=== PATIENT | male | born 1945 | race African-American/Black ===

== ENCOUNTER 2017-01-31 12:03 | Inpatient (IN) | payer OTHER ==
[~2017-01-31] VITALS: Ht 167.6 cm; Wt 63.7 kg
[~2017-01-31 12:03] MED LIST: APRESOLINE25 MG PO; ASPIR-LOW81 MG PO; ISOSORBIDE DINI10 MG PO; NICOTINE PATCH1 EACH TD
[2017-01-31 13:34] LABS: EOSINOPHIL (%) 1.1 % (0-5); EOSINOPHIL COUNT 0.1 K/uL (0-0.3); HEMATOCRIT 38.8 % (38.0-50.0); IMMATURE GRANULOCYTE (%) 0.9 % (0.0-0.7); IMMATURE GRANULOCYTE COUNT 0.1 K/uL; INSTRUMENT ABS NEUTROPHIL CT 6.8 K/uL; LYMPHOCYTE COUNT 1.4 K/uL (1.0-2.8); MCH 27.9 PG (29.0-34.0); MCHC 32.2 G/DL (30.0-36.0); MCV 86.6 FL (86-99); MEAN PLAT.VOLUME 8.9 uM^3 (9.0-12.4); MONOCYTE (%) 6.7 % (3-12); MONOCYTE COUNT 0.6 K/uL (0-0.8); NEUTROPHIL (%) 75.5 % (45-76); NEUTROPHIL COUNT 6.8 K/uL (1.8-6.4); PLATELET COUNT 280 K/uL (156-360); RBC DIS.WIDTH-CV 13.4 % (11.8-14.6); RBC DIS.WIDTH-SD 42.2 % (39-53); RED BLOOD COUNT 4.48 M/uL (4.00-5.50)
[2017-01-31 13:44] LABS: INTER. NORMALIZED RATIO 1.2; PROTHROMBIN TIME 12.8 SEC (10.2-12.9); PTT 28.6 SEC (25-37)
[2017-01-31 13:46] LABS: CHLORIDE 101 mEq/L (99-109); POTASSIUM 4.2 mEq/L (3.7-5.4); SODIUM 136 mEq/L (136-147)
[2017-01-31 13:48] LABS: GLUCOSE 92 mg/dL (70-99)
[2017-01-31 13:50] LABS: ANION GAP 11 MEQ/L (2-14); TOTAL BILIRUBIN 0.4 mg/dL (0.0-1.0)
[2017-01-31 13:52] LABS: ALKALINE PHOSPHATASE 113 IU/L (3-129); GFR ESTIMATE (CALCULATED) 40 mL/min/
[2017-01-31 13:53] LABS: UREA NITROGEN (BUN) 30 mg/dL (9-23)
[2017-01-31 13:54] LABS: DIRECT BILIRUBIN 0.2 mg/dL (0.0-0.3)
[2017-01-31 13:56] LABS: TROP-I INTERPRETATION NEGATIVE; TROPONIN-I < 0.01 ng/mL (0.0-0.30)
[2017-01-31 15:51] LABS: ADD MIUA? NO; BILIRUBIN NEGATIVE; BLOOD NEGATIVE; COLOR STRAW ((YELLOW)); GLUCOSE (STRIP) NEGATIVE; KETONES NEGATIVE; LEUKOCYTES NEGATIVE; NITRITE NEGATIVE; PROTEIN (STRIP) NEGATIVE; SPECIFIC GRAVITY 1.008 (1.000-1.030); UCUL ADDED? NO; UROBILINOGEN 0.2 MG/DL (0.2-1.0)
[2017-01-31] MEDS ORDERED: ISOSORBIDE DINI10 MG PO (17:16)
[2017-01-31] MEDS ORDERED: BAYER CHEWABLE81 MG PO (17:19)
[2017-01-31] MEDS ORDERED: LISINOPRIL-HCT1 EACH PO (17:20)
[2017-01-31] MEDS ORDERED: METOPROLOL SUCC50 MG PO (17:20)
[2017-01-31 18:38] LABS: HDL CHOLESTEROL 26 MG/DL (Desirable>=40); LDL CHOLESTEROL 143 mg/dL (Desirable<100); NON-HDL CHOLESTEROL 164 mg/dL (Desirable<160); TOTAL CHOLESTEROL 190 mg/dL (Desirable<200); TRIGLYCERIDES 103 MG/DL (Normal: <150)
[2017-01-31 18:47] VITALS: BP 200/94
[2017-01-31 19:07] LABS: Estimated Average Glucose 123 mg/dL (70-123); HEMOGLOBIN A1c (GLYCOHEMOGLOB) 5.9 % HGB (Below 5.7)
[2017-02-01] VITALS (8 sets, daily range): BP systolic 125–178; BP diastolic 74–89
[2017-02-01 05:59] LABS: HEMATOCRIT 33.9 % (38.0-50.0); MCHC 33.9 G/DL (30.0-36.0); MCV 85.4 FL (86-99); MEAN PLAT.VOLUME 9.3 uM^3 (9.0-12.4); PLATELET COUNT 253 K/uL (156-360); RBC DIS.WIDTH-CV 13.5 % (11.8-14.6); RBC DIS.WIDTH-SD 42.3 % (39-53); RED BLOOD COUNT 3.97 M/uL (4.00-5.50); WHITE BLOOD COUNT 6.5 K/uL (4.1-10.2)
[2017-02-01 06:24] LABS: ALKALINE PHOSPHATASE 92 IU/L (3-129); ANION GAP 8 MEQ/L (2-14); CHLORIDE 106 MEQ/L (99-109); GFR ESTIMATE (CALCULATED) 45 mL/min/; GLUCOSE 97 mg/dL (70-99); POTASSIUM 3.8 MEQ/L (3.7-5.4); SAMPLE HEMOLYSIS CHECK 0; SAMPLE ICTERIC CHECK 0; SAMPLE LIPEMIA CHECK 0; SODIUM 138 MEQ/L (136-147); TOTAL BILIRUBIN 0.4 MG/DL (0.0-1.0); UREA NITROGEN (BUN) 29 mg/dL (9-23)
[2017-02-02 03:57] VITALS: BP 160/84
[2017-02-02 06:36] LABS: HEMATOCRIT 35.8 % (38.0-50.0); MCH 27.9 PG (29.0-34.0); MCHC 32.7 G/DL (30.0-36.0); MCV 85.4 FL (86-99); MEAN PLAT.VOLUME 9.2 uM^3 (9.0-12.4); PLATELET COUNT 256 K/uL (156-360); RBC DIS.WIDTH-CV 13.6 % (11.8-14.6); RED BLOOD COUNT 4.19 M/uL (4.00-5.50); WHITE BLOOD COUNT 6.1 K/uL (4.1-10.2)
[2017-02-02 07:01] LABS: ANION GAP 9 MEQ/L (2-14); CHLORIDE 106 MEQ/L (99-109); GFR ESTIMATE (CALCULATED) 43 mL/min/; GLUCOSE 91 mg/dL (70-99); MAGNESIUM 1.5 mg/dl (1.3-2.7); POTASSIUM 4.1 MEQ/L (3.7-5.4); SAMPLE HEMOLYSIS CHECK 0; SAMPLE ICTERIC CHECK 0; SAMPLE LIPEMIA CHECK 0; SODIUM 138 MEQ/L (136-147); UREA NITROGEN (BUN) 31 mg/dL (9-23)
[2017-02-02 07:46] VITALS: BP 158/78
[2017-02-02] MEDS ORDERED: ASPIR-LOW81 MG PO (12:42)
[2017-02-02] MEDS ORDERED: DOCUSATE SODIU100 MG PO (12:42)
[2017-02-02] MEDS ORDERED: METOPROLOL SUCC50 MG PO (12:42)
[2017-02-02] MEDS ORDERED: NICOTINE PATCH1 EACH TD (12:42)
[2017-02-02] MEDS ORDERED: LISINOPRIL-HCT1 EACH PO (12:42)
[2017-02-02] MEDS ORDERED: LOVENOX40 MG/0.4 SC (12:42)
[2017-02-02] MEDS ORDERED: APRESOLINE10 MG PO (12:42)
[2017-02-02] MEDS ORDERED: ISOSORBIDE DINI10 MG PO (12:42)
[2017-02-02] MEDS ORDERED: ONDANSETRON4 MG/2 ML IV (12:42)
[2017-02-02] MEDS ORDERED: ATORVASTATIN CA40 MG PO (12:42)
[2017-02-02] MEDS ORDERED: FAMOTIDINE20 MG PO (12:42)
== END 2017-02-02 14:53 | DRG 65 ==
LOC: EME 12:03 → ENRESERV 16:41 → EDOF 16:41 → 5SOUTH 16:41 → ENRESERV 17:23 → 5SOUTH 18:15
PROVIDERS: Emergency Medicine; Internal Medicine; Student in an Organized Health Care Education/Training Program
DX: I63.9 Cerebral infarction, unspecified (principal); I73.9 Peripheral vascular disease, unspecified; R29.6 Repeated falls; F12.90 Cannabis use, unspecified, uncomplicated; F17.210 Nicotine dependence, cigarettes, uncomplicated; I16.0 Hypertensive urgency; F10.10 Alcohol abuse, uncomplicated; R51 Headache; N18.9 Chronic kidney disease, unspecified; F32.9 Major depressive disorder, single episode, unspecified; R09.81 Nasal congestion; I12.9 Hypertensive chronic kidney disease with stage 1 through stage 4 chronic kidney disease, or unspecified chronic kidney disease; H53.2 Diplopia; Z80.9 Family history of malignant neoplasm, unspecified; Z79.82 Long term (current) use of aspirin; Z90.49 Acquired absence of other specified parts of digestive tract; Z23 Encounter for immunization; N18.4 Chronic kidney disease, stage 4 (severe)
CPT/HCPCS: 70450; 70551; 80048; 80053; 80061; 80076; 81003; 83036; 83605; 83735; 83880; 84484; 85025; 85027; 85610; 85730; 90686; 92523 GN; 93306; 93880; 97530 GO; 99281; 99285; J0360; J1650; J7030; S0028